=== PATIENT | female | born 1985 | race Caucasian/White ===

== ENCOUNTER 2016-12-20 15:07 | Emergency (ER) | payer OTHER ==
[~2016-12-20] VITALS: Ht 167.6 cm; Wt 70.5 kg
[~2016-12-20 15:07] MED LIST: ASEN5TAB7 SL; CALC-84 PO
[2016-12-20 15:11] VITALS: Ht 167.6 cm; Wt 70.5 kg
[2016-12-20] MEDS ORDERED: ONDANSETRON (ODT) 4 MG TAB ODT STA (17:46)
--- NOTE | 2016-12-20 17:55 | ERA ---
ER Documentation Chief Complaint Date/Time DATE: 12/20/16 TIME: 17:51 Chief Complaint lower abdominal pain x 2 weeks HPI This is a 31-year-old female presents complaining of diffuse abdominal pain for over a month. History given is inconsistent with the nurse's notes. Patient also states that she has been nauseated, constipated and diarrhea. No aggravating or alleviating factors identified. Patient denies fever, weight loss, headache, changes in vision/hearing, stiff neck, difficulty breathing, chest pain, shortness of breath, back pain, dysuria, hematuria, or discharge. Denies recent surgeries or antibiotic use, sick contacts, and recent travel. Vaccination status is up to date. Patient will take any medications to relieve the symptoms. ROS All systems reviewed and are negative except as per history of present illness. Medications Home Meds Active Scripts Famotidine* (Pepcid*) 20 Mg Tablet, 20 MG PO BID for 4 Days, TAB Prov:LUACS BURDEN PA-C 12/20/16 Reported Medications Calcium Carbonate-Vitamin D3 (Calcium 500 + D Tablet) 1 Each Tablet, 1 TAB PO DAILY, TAB 03/12/16 Asenapine (Saphris) 5 Mg Tab.subl, 5 MG SL QHS 03/12/16 Allergies Allergies: Coded Allergies: No Known Allergy (Unverified , 03/12/16) PMhx/Soc Hx Psychiatric Problems: Yes (AnXIETY) Hx Alcohol Use: No Hx Substance Use: No Hx Tobacco Use: No Physical Exam Vitals Vital Signs Date Time Temp Pulse Resp B/P Pulse Ox O2 Delivery O2 Flow Rate FiO2 12/20/16 15:11 98.0 89 18 125/69 98 Physical Exam Const: Well-developed well-appearing 31-year-old female in no acute distress Head: Atraumatic Eyes: Normal Conjunctiva ENT: Normal External Ears, Nose and Mouth. Neck: Full range of motion..~ No meningismus. Resp: Clear to auscultation bilaterally Cardio: Regular rate and rhythm, no murmurs Abd: Mild tenderness diffusely. No McBurney point tenderness, negative Parmar sign. Soft, non distended. Normal bowel sounds Skin: No petechiae or rashes Back: No midline or flank tenderness Ext: No cyanosis, or edema Neur: Awake and alert Psych: Normal Mood and Affect Result Diagram: 7/24/17 1810 7/24/17 1810 Results 24 hrs Laboratory Tests Test 12/20/16 18:10 12/20/16 18:20 White Blood Count 5.410^3/ul Red Blood Count 3.9510^6/ul Hemoglobin 13.3g/dl Hematocrit 40.6% Mean Corpuscular Volume 102.8fl Mean Corpuscular Hemoglobin 33.7pg Mean Corpuscular Hemoglobin Concent 32.8g/dl Red Cell Distribution Width 11.9% Platelet Count 18294^3/UL Mean Platelet Volume 10.6fl Neutrophils % 61.2% Lymphocytes % 24.8% Monocytes % 11.9% Eosinophils % 1.3% Basophils % 0.6% Nucleated Red Blood Cells % 0.0/100WBC Neutrophils # 3.310^3/ul Lymphocytes # 1.310^3/ul Monocytes # 0.610^3/ul Eosinophils # 0.110^3/ul Basophils # 0.010^3/ul Nucleated Red Blood Cells # 0.010^3/ul Sodium Level 140mmol/L Potassium Level 4.4mmol/L Chloride Level 100mmol/L Carbon Dioxide Level 28mmol/L Anion Gap 16 Blood Urea Nitrogen 10mg/dl Creatinine 0.60mg/dl Glucose Level 89mg/dl Calcium Level 9.9mg/dl Urine Color STRAW Urine Clarity CLEAR Urine pH 5.0 Urine Specific [place] 1.011 Urine Ketones 1+mg/dL Urine Nitrite NEGATIVEmg/dL Urine Bilirubin NEGATIVEmg/dL Urine Urobilinogen NEGATIVEmg/dL Urine Leukocyte Esterase NEGATIVELeu/ul Urine Microscopic RBC 1/HPF Urine Microscopic WBC 0/HPF Urine Hemoglobin 2+mg/dL Urine Glucose NEGATIVEmg/dL Urine Total Protein NEGATIVEmg/dl Current Medications Medications (Trade) Dose Ordered Sig/Perico Route PRN Reason Start Time Stop Time Status Last Admin Dose Admin Ondansetron HCl (Zofran Odt) 4 mg ONCE STAT ODT 12/20/16 17:46 12/20/16 17:49 DC 12/20/16 18:11 Acetaminophen (Tylenol Tab) 650 mg ONCE ONCE PO 12/20/16 18:00 12/20/16 18:01 DC 12/20/16 18:11 Famotidine (Pepcid) 20 mg ONCE ONCE PO 12/20/16 18:00 12/20/16 18:08 DC 12/20/16 18:11 Procedures/MDM This is a 31-year-old female presenting with chief complaint of chronic abdominal pain times more than 1 month as described in history and physical examination. Zofran 4 mg ODT and 650 mg acetaminophen p.o. were given in the ED with adequate relief of symptoms. Due to patient's persistence labs were obtained and revealed the following: MCV 102 but otherwise largely unremarkable. Urine negative. Urinalysis unremarkable. At this time a very little suspicion for acute pathology including appendicitis , mesenteric ischemia, AAA, PID, cystitis, ascending cholangitis, pancreatitis mechanical obstruction. Most likely diagnosis is chronic abdominal pain due to unspecified etiology versus irritable bowel syndrome. I have spoke with the patient regarding their condition and future management. They have verbally responded that they understand their status and treatment plan. The patients vitals are stable, and their current condition is appropriate for discharge. The patient will be given discharge instructions with return precautions. Departure Diagnosis: Primary Impression: Abdominal pain Qualified Code: R10.84 - Generalized abdominal pain Additional Impression: Irritable bowel syndrome (IBS) Qualified Code: K58.2 - Irritable bowel syndrome with both constipation and diarrhea Condition: Stable Additional Instructions: Follow up with your PCP within the next 1-3 days for a more thorough evaluation and a possible referral to a specialist. Return the the emergency department immediately if symptoms worsen or change. If you have any questions regarding medications, ask your pharmacist or us before you leave. If any adverse reactions occur while taking your medications, discontinue the treatment and return to the emergency department immediately. Take your medications as directed, and complete the entire course of treatment. LUCAS BURDEN PA-C Dec 20, 2016 17:55
[2016-12-20] MEDS ORDERED: ACETAMINOPHEN 325 MG TAB PO ONE (18:00)
[2016-12-20] MEDS ORDERED: FAMOTIDINE 20 MG TAB PO ONE (18:00)
[2016-12-20 18:22] LABS: BASOPHILS % 0.6 % (0.0-2.0); EOSINOPHILS # 0.1 10^3/ul (0.0-0.5); EOSINOPHILS % 1.3 % (0.0-7.0); HEMATOCRIT 40.6 % (37.0-47.0); HEMOGLOBIN 13.3 g/dl (12.0-16.0); LYMPHOCYTES # 1.3 10^3/ul (0.8-2.9); LYMPHOCYTES % 24.8 % (15.0-51.0); MEAN CORPUSCULAR HEMOGLOBIN 33.7 pg (29.0-33.0); MEAN CORPUSCULAR HGB CONC 32.8 g/dl (32.0-37.0); MEAN CORPUSCULAR VOLUME 102.8 fl (82.0-101.0); MEAN PLATELET VOLUME 10.6 fl (7.4-10.4); MONOCYTE # 0.6 10^3/ul (0.3-0.9); MONOCYTES % 11.9 % (0.0-11.0); NEUTROPHIL # 3.3 10^3/ul (1.6-7.5); NEUTROPHILS % 61.2 % (39.0-77.0); PLATELET COUNT 172 10^3/UL (140-415); RED BLOOD COUNT 3.95 10^6/ul (4.20-5.40); RED CELL DISTRIBUTION WIDTH 11.9 % (11.5-14.5); WHITE BLOOD COUNT 5.4 10^3/ul (4.8-10.8)
[2016-12-20 18:38] LABS: CALCIUM 9.9 mg/dl (8.4-10.2); CREATININE 0.6 mg/dl (0.44-1.00); POTASSIUM 4.4 mmol/L (3.5-5.1)
[2016-12-20 18:56] LABS: ADD UMIC YES; UR ASCORBIC ACID NEGATIVE (NEGATIVE); UR BILIRUBIN (Dip) NEGATIVE (NEGATIVE); UR BLOOD (Dip) 2+ mg/dL (NEGATIVE); UR CLARITY CLEAR (CLEAR); UR COLOR STRAW (YELLOW); UR GLUCOSE (Dip) NEGATIVE (NEGATIVE); UR KETONES (Dip) 1+ mg/dL (NEGATIVE); UR LEUKOCYTE ESTERASE (Dip) NEGATIVE Leu/ul (NEGATIVE); UR NITRITE (Dip) NEGATIVE (NEGATIVE); UR RBC 1 /HPF (0-5); UR SPECIFIC GRAVITY (Dip) 1.011 (1.003-1.030); UR TOTAL PROTEIN (Dip) NEGATIVE (NEGATIVE); UR UROBILINOGEN (Dip) NEGATIVE (NEGATIVE)
[2016-12-20] MEDS ORDERED: FAMO-96 PO (19:05)
[2016-12-20 19:12] VITALS: BP 125/74; PULSE 72; RESP 19; TEMP 98.4
== END 2016-12-20 19:13 | disposition home or self-care (01) ==
LOC: FTE 15:07
DX: R10.84 Generalized abdominal pain (principal); K58.2 Mixed irritable bowel syndrome
CPT/HCPCS: 80048; 81001; 85025; Z7610; 99283

== ENCOUNTER 2017-02-03 15:32 | Emergency (ER) | payer OTHER ==
[~2017-02-03] VITALS: Ht 157.5 cm; Wt 73.0 kg
[~2017-02-03 15:32] MED LIST changes: +FAMO-96 PO
[2017-02-03 15:46] VITALS: Ht 157.5 cm; Wt 73.0 kg
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
[2017-02-03] MEDS ORDERED: ONDANSETRON (ODT) 4 MG TAB ODT STA (17:12)
[2017-02-03 17:54] LABS: ADD UMIC NO; UR ASCORBIC ACID 20 mg/dL (NEGATIVE); UR BILIRUBIN (Dip) NEGATIVE (NEGATIVE); UR BLOOD (Dip) NEGATIVE (NEGATIVE); UR CLARITY CLEAR (CLEAR); UR COLOR YELLOW (YELLOW); UR GLUCOSE (Dip) NEGATIVE (NEGATIVE); UR KETONES (Dip) NEGATIVE (NEGATIVE); UR LEUKOCYTE ESTERASE (Dip) NEGATIVE Leu/ul (NEGATIVE); UR NITRITE (Dip) NEGATIVE (NEGATIVE); UR SPECIFIC GRAVITY (Dip) 1.017 (1.003-1.030); UR TOTAL PROTEIN (Dip) NEGATIVE (NEGATIVE); UR UROBILINOGEN (Dip) NEGATIVE (NEGATIVE)
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
[2017-02-03] MEDS ORDERED: CYCL-319 PO (19:56)
[2017-02-03] MEDS ORDERED: ONDA4TAB8 PO (19:57)
[2017-02-03] MEDS ORDERED: DOCU-144 PO (19:57)
[2017-02-03] MEDS ORDERED: HYDR-906 PO (19:59)
[2017-02-03 20:37] VITALS: BP 116/67; PULSE 70; RESP 20; TEMP 98.3
== END 2017-02-03 20:39 | disposition home or self-care (01) ==
LOC: FTE 15:32
DX: S39.92XA Unspecified injury of lower back, initial encounter (principal); M41.9 Scoliosis, unspecified; S39.91XA Unspecified injury of abdomen, initial encounter; S29.002A Unspecified injury of muscle and tendon of back wall of thorax, initial encounter; R11.0 Nausea; Y04.2XXA Assault by strike against or bumped into by another person, initial encounter
CPT/HCPCS: 72128; 72131; 74176; 81003; Z7502; Z7610

== ENCOUNTER 2017-03-14 18:50 | Emergency (ER) | payer OTHER ==
[~2017-03-14] VITALS: Ht 167.6 cm; Wt 75.5 kg
[~2017-03-14 18:50] MED LIST changes: +CYCL-319 PO; +DOCU-144 PO; +HYDR-906 PO; +ONDA4TAB8 PO
[2017-03-14 19:03] VITALS: Ht 167.6 cm; Wt 75.5 kg
--- NOTE | 2017-03-14 21:37 | ERD ---
ER Documentation Chief Complaint Date/Time DATE: 03/14/17 TIME: 21:30 Chief Complaint shaky, sob, nausea x 2 weeks with palpitation and chest pain when coughing HPI 32-year-old female presents here to emergency department for complaints of cough sore throat mid chest pain with palpitations for 2 weeks. Patient feels shaky and shortness of breath at times and nauseated. Patient was seen by primary care doctor 1 week ago, was diagnosed to have possible acid reflux, was given famotidine which she started taking. Patient continues to have the symptoms. Patient describes the pain as sharp pain, 6/10 scale, as was upon taking a deep breath. Patient also has history of PTSD. ROS All systems reviewed and are negative except as per history of present illness. Medications Home Meds Active Scripts Hydrocodone/Acetaminophen (Deer 5-325 Tablet) 1 Each Tablet, 1 TAB PO Q6H Y for PAIN, #7 TAB Prov:JESUSJULIOYANN Zuniga 02/03/17 Docusate Sodium* (Colace*) 100 Mg Capsule, 100 MG PO DAILY, #30 CAP Prov:RICHARDSON LEE Nadia 02/03/17 Ondansetron Hcl* (Zofran*) 4 Mg Tablet, 4 MG PO Q8H Y for NAUSEA AND/OR VOMITING , #30 TAB Prov:RICHARDSON LEE Nadia 02/03/17 Cyclobenzaprine Hcl* (Cyclobenzaprine Hcl*) 10 Mg Tablet, 10 MG PO Q12 Y for MUSCLE SPASMS, #20 TAB Prov:BENEDICTELIASJULIOYANN Nadia 02/03/17 Famotidine* (Pepcid*) 20 Mg Tablet, 20 MG PO BID for 4 Days, TAB Prov:LUCAS BURDEN PA-C 12/20/16 Reported Medications Calcium Carbonate-Vitamin D3 (Calcium 500 + D Tablet) 1 Each Tablet, 1 TAB PO DAILY, TAB 03/12/16 Asenapine (Saphris) 5 Mg Tab.subl, 5 MG SL QHS 03/12/16 Allergies Allergies: Coded Allergies: No Known Allergy (Unverified , 03/14/17) PMhx/Soc Medical and Surgical Hx: pt denies Surgical Hx History of Surgery: No Hx Psychiatric Problems: Yes (Anxiety) Hx Miscellaneous Medical Probl: Yes (scoliosis) Hx Alcohol Use: No Hx Substance Use: No Hx Tobacco Use: No Smoking Status: Never smoker FmHx Family History: No coronary disease, No diabetes, No other Physical Exam Vitals Vital Signs Date Time Temp Pulse Resp B/P Pulse Ox O2 Delivery O2 Flow Rate FiO2 03/14/17 19:03 98.0 91 18 125/68 98 Physical Exam GENERAL: The patient is well developed and appropriate for usual state of health, in no apparent distress. CHEST: Clear to auscultation bilaterally. There are no rales, wheezes or rhonchi. HEART: Regular rate and rhythm. No murmurs, clicks, rubs or gallops. No S3 or S4. ABDOMEN: Soft, nontender and nondistended. Good bowel sounds. No rebound or guarding. No gross peritonitis. No gross organomegaly or masses. No Parmar sign or McBurney point tenderness. BACK: No midline or flank tenderness. EXTREMITIES: Equal pulses bilaterally. There is no peripheral clubbing, cyanosis or edema. No focal swelling or erythema. Full range of motion. Grossly neurovascularly intact. NEURO: Alert and oriented. Cranial nerves 2-12 intact. Motor strength in all 4 extremities with 5/5 strength. Sensation grossly intact. Normal speech and gait. SKIN: There is no apparent rash or petechia. The skin is warm and dry. HEMATOLOGIC AND LYMPHATIC: There is no evidence of excessive bruising or lymphedema. No gross cervical, axillary, or inguinal lymphadenopathy. Results 24 hrs EKG was done, read by me and is normal sinus rhythm at a rate of 86, normal axis , there is no ST changes or changes in the EKG that indicates any cardiac emergencies at this time. Patient's EKG was also reviewed by Dr. Morales. Impression: no acute findings on EKG PROCEDURE: XR Chest. CLINICAL INDICATION: Chest pain. Cough. TECHNIQUE: Single AP portable chest. COMPARISON: No prior Chest x-ray FINDINGS: The cardiomediastinal silhouette is within normal limits of size. Marked dextro rotoscoliosis. The lungs are clear without pleural effusion or focal consolidation. No pneumothorax. The osseous structures and soft tissues are unremarkable. IMPRESSION: 1. No evidence for active cardiopulmonary disease. Dextroscoliosis of the thoracic spine. RPTAT:AAJJ Physician Shante Date Time Electronically viewed and signed by Physician Shante on 03/14/2017 22:27 VITALIY/ CC: OLIVA SIMMONS NP Procedures/MDM Medical Decision Making: Pt's cough nonspecific at this time, could be from acid reflux gastritis, can be also from acute bronchitis. At this time, patient will be treated with guaifenesin with codeine, albuterol, a 5 day course of azithromycin for possible atypical infection, patient pain can be also from dextroscoliosis of her spine. There is low suspicion for cardiopulmonary emergencies at this time. Patient has low risk factors. EKG is normal, there is no changes in the EKG that indicates cardiac emergencies. Chest X-ray does not show cardiopulmonary emergencies at this time. There is low suspicion for aortic aneurysm, myocardial infarction, pneumothorax, pleural effusion, pulmonary embolism, or any other cardiopulmonary emergencies at this time. Dispostion: Home. Stable Disclaimer: Inadvertent spelling and grammatical errors are likely due to EHR/ dictation software use and do not reflect on the overall quality of patient care. Also, please note that the electronic time recorded on this note does not necessarily reflect the actual time of the patient encounter. Departure Diagnosis: Primary Impression: Chronic cough Additional Impressions: Chest wall pain Dextroscoliosis Condition: Stable Patient Instructions: Chest Wall Pain, Costochondritis, Cough, Chronic, Uncertain Cause, (Adult), Understanding Scoliosis OLIVA SIMMONS NP Mar 14, 2017 21:37
--- NOTE | 2017-03-14 22:27 | RADRPT ---
PROCEDURE: XR Chest. CLINICAL INDICATION: Chest pain. Cough. TECHNIQUE: Single AP portable chest. COMPARISON: No prior Chest x-ray FINDINGS: The cardiomediastinal silhouette is within normal limits of size. Marked dextro rotoscoliosis. The lungs are clear without pleural effusion or focal consolidation. No pneumothorax. The osseous struc tures and soft tissues are unremarkable. IMPRESSION: 1. No evidence for active cardiopulmonary disease. Dextroscoliosis of the thoracic spine. RPTAT:AAJJ Physician Shante Date Time Electronically viewed and signed by Physician Shante on 03/14/2017 22:27 VITALIY/
[2017-03-14] MEDS ORDERED: GUAI473L22 PO (22:41)
[2017-03-14] MEDS ORDERED: IBUP-1542 PO (22:41)
[2017-03-14] MEDS ORDERED: CETI10CA PO (22:41)
[2017-03-14] MEDS ORDERED: AZIT250T94 PO (22:41)
[2017-03-14 23:04] VITALS: BP 124/70; PULSE 72; RESP 16
== END 2017-03-14 23:05 | disposition home or self-care (01) ==
LOC: FTE 18:50
DX: M41.9 Scoliosis, unspecified (principal); R07.89 Other chest pain; R05 Cough
CPT/HCPCS: 71010; Z7502

== ENCOUNTER 2017-07-08 18:10 | Emergency (ER) | END 2017-07-08 23:16 | disposition home or self-care (01) ==

== ENCOUNTER 2017-11-13 13:57 | Emergency (ER) | END 2017-11-13 15:48 | disposition home or self-care (01) ==

== ENCOUNTER 2017-12-19 20:42 | Emergency (ER) | END 2017-12-19 23:50 | disposition home or self-care (01) ==

== ENCOUNTER 2019-01-27 21:49 | Emergency (ER) | payer OTHER ==
[~2019-01-27] VITALS: Ht 172.7 cm; Wt 75.7 kg
[~2019-01-27 21:49] MED LIST changes: +ACET325T33 PO; +AZIT250T PO; +CALC-662 PO; -CALC-84 PO; +CETI10CA PO; -CYCL-319 PO; +CYCL10TA7 PO; +ESOM40CA PO; +GUAI473L22 PO; +HC30CR25 TOP; +HYDR-4011 PO; -HYDR-906 PO; +IBUP-1542 PO; +RANI150T35 PO
[2019-01-27 21:50] VITALS: Ht 172.7 cm; Wt 75.7 kg
[2019-01-27] MEDS ORDERED: morphine 4 MG/ML VIAL IV STA (23:07)
[2019-01-27] MEDS ORDERED: LIDOCAINE/MYLANTA 40 ML BTL PO STA (23:07)
[2019-01-27] MEDS ORDERED: BELLADONNA/PHENOBARBITAL TAB PO STA (23:07)
[2019-01-27] MEDS ORDERED: SOD CHLORIDE 0.9% 1,000 ML IV STA (23:07)
[2019-01-27] MEDS ORDERED: ONDANSETRON 4 MG INJ IV STA (23:07)
[2019-01-28 01:00] VITALS: BP 106/65; PULSE 67; RESP 21
== END 2019-01-28 01:31 | disposition home or self-care (01) ==
LOC: E/R 21:49
DX: K92.2 Gastrointestinal hemorrhage, unspecified (principal); K92.1 Melena
CPT/HCPCS: 36415; 74176; 80053; 81001; 81025; 83690; 85025; 96374; 96375; J2270; J2405; J7030; Z7502; Z7610